=== PATIENT | female | born 1970 | race Caucasian/White ===

== ENCOUNTER 2024-11-22 10:52 | Outpatient (CLI) | payer OTHER, SELFPAY ==
--- NOTE | ~2024-11-22 | XR_ITS ---
CHEST RADIOGRAPH, PA AND LATERAL CLINICAL HISTORY: Asthma w/o status asthmaticus . COMPARISON: None available TECHNIQUE: PA and lateral views of the chest. FINDINGS The cardiomediastinal silhouette is unremarkable. The lungs are clear. IMPRESSION: No focal infiltrate or effusion. Reviewed, dictated and finalized at location A.
== END 2024-11-22 10:53 | disposition home or self-care (01) ==
LOC: MICIMG 10:59
PROVIDERS: PCP Nurse Practitioner; Visit Provider Nurse Practitioner
DX: J45.909 Unspecified asthma, uncomplicated (principal)
CPT/HCPCS: 71046

== ENCOUNTER 2024-12-21 15:25 | Emergency (ER) | payer OTHER, SELFPAY ==
--- OUTSIDE RECORDS SUMMARY | 2024-11-29 05:18 | XMS_ITS | Continuity of Care Document ---
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, [place], [address], [place]. tel:[phone] Family History Family Member Type Diagnosis Age At Onset No Information Payers Payer name Insurance type Covered constitution party ID Authoriza tion(s) No Information Social History Type Description Quantity Date Captured Comments Sex Female Smoking Status No Information Chief Complaint And Reason For Visit No Information Reason For Referral Reason For Referral No Information History Of Present Illness Encounter Date Complaint History Of Prese nt Illness No Information Functional Status Date Functional Assessmen t No Information Instructions Date Instruction Additional Infor mation No Information Assessments Type Assessment Date No Information Patient Care Teams Name Effective Dates (start - stop) Status Members No Information
--- OUTSIDE RECORDS SUMMARY | 2024-11-29 05:18 | XMS_ITS | Continuity of Care Document ---
Author Organization [facility] Address [address] [facility] [address] [place] [address] Phone Care Team Providers Care Equine Intern Name Role Phone Nabor Castellano MD Unavailable Unavailable Advance Directives Directive Yes / No Effective Date File Name No Information Encounters Encounter Description Practice Location Reason(s) For Visit Diagnoses Date Provider Providers Copied on Encounter [facility], [address] [facility] [facility] [address], [place], [place], [id number], [place] tel:[phone] [facility] No Information [address] [facility], [place], [address], [place]. tel:[phone] Family History Family Member Type Diagnosis Age At Onset No Information Payers Payer name Insurance type Covered green party ID Authoriza tion(s) No Information Social [...]
--- NOTE | ~2024-12-21 | XR_ITS ---
EXAMINATION: XR chest 1V portable 12/21/2024 16:14 INDICATION: SOA TECHNIQUE:A single portable AP upright frontal image of the chest was obtained. COMPARISON: 11/22/2024 FINDINGS: Heart is not enlarged. No pneumothorax. No pleural effusion. No free air the diaphragm. Small opacities in the mid and lower lungs. IMPRESSION: 1: Small opacities in the mid and lower lungs which represents atelectasis/scarring or infiltrates. Reviewed, dictated and finalized at location Q. IMPRESSION: 1: Small opacities in the mid and lower lungs which represents atelectasis/sca rring or infiltrates.
[2024-12-21 15:35] VITALS: BP 159/67; PULSE 94; RESP 24; TEMP 36.4; O2SAT 96
--- NOTE | 2024-12-21 15:46 | PC.NURSE ---
Bilateral lungs auscultated in triage. Pt. moving little air. Pt. brought back to a room, ER docs notified and ED respiratory called to bedside.
--- NOTE | 2024-12-21 15:48 | ECG_ITS ---
Test Date: 2024-12-21 15:48:13 Measurements Intervals [place] Rate: 82 P: 8 UT: 170 QRS: 17 QRSD: 74 T: 61 QT: 358 QTc: 419 Interpretive Statements SINUS RHYTHM NONSPECIFIC T-WAVE ABNORMALITY ABNORMAL ECG No previous ECG available for comparison Electronically Signed On 12-22-2024 12:13:16 CDT by Willi Perez M.D.
[2024-12-21] MEDS: ALBUTEROL SULFATE NEB 2.5 MG/3 ML INH 15 MG INHALATION (16:01)
[2024-12-21] MEDS: IPRATROPIUM BR 0.02% INH SOLN 0.5 MG/2.5 ML VIAL 1.5 MG INHALATION (16:01)
[2024-12-21 16:13] VITALS: PULSE 79; RESP 21
[2024-12-21 16:21] VITALS: BP 137/79; PULSE 83; RESP 20; O2SAT 97
[2024-12-21] MEDS: Please add drug allergy info to patient profile. 1 EACH XX (16:43)
[2024-12-21 16:44] VITALS: PULSE 80
--- NOTE | 2024-12-21 17:48 | ED.SOB ---
HPI - SOB/Dyspnea General Chief Complaint: Shortness of Breath/Dyspnea Stated Complaint: SOB Time Seen by Provider: 12/21/24 15:47 History of Present Illness HPI Narrative: Patient is a 54-year-old female who presents ER with shortness of breath. Worsening over last couple days. Associated with productive cough with yellow mucus. No fevers or chills. Seen at urgent care and sent here to get breathing treatments. She was prescribed azithromycin as well as Medrol Dosepak. She has mild congestion. No sore throat. Related Data Allergies Allergy/AdvReac Type Severity Reaction Status Date / Time nirmatrelvir (From Paxlovid) Allergy Unknown Shakiness Verified 12/21/24 16:13 ritonavir (From Paxlovid) Allergy Unknown Shakiness Verified 12/21/24 16:13 Review of Systems Review of Systems: All systems reviewed & are unremarkable except as noted in HPI and below Constitutional: Constitutional: Reports no additional constitutional complaints ENT: Reports system reviewed and no additional complaints, except as documented Cardiovascular: Cardiovascular: Reports no additional cardiovascular complaints Respiratory: Respiratory: Reports no additional respiratory complaints [facility] Past Medical History Medical History (Updated 12/21/24 @ 18:05 by Giovanni Gutierrez MD) Asthma Surgical History Surgical History (Updated 12/21/24 @ 17:49 by Giovanni Gutierrez MD) No pertinent past surgical history Exam Narrative: GENERAL: Well-appearing, well-nourished, and in no acute distress. HEAD: Normocephalic, atraumatic. ENT: Mucous membranes moist. CHEST: Poor air movement with diffuse expiratory wheezing. No respiratory distress. HEART: Regular rate and rhythm. Normal peripheral pulses. EXTREMITIES: Normal range of motion. No edema. SKIN: Warm, dry, no rash. NEURO: Alert and oriented x3. PSYCH: Normal mood and affect. Course Course Emergency Course: Wheezing resolved with hour long nebulizer treatment. Recommend continuing Z-Claudio and Medrol Dosepak. Discussed imaging results. Recommend using inhaler 4-6 puffs every 4-6 hours. Vital Signs Vital signs: Vital Signs Temperature 97.5 F L 12/21/24 15:35 Pulse Rate 94 12/21/24 15:35 Respiratory Rate 24 H 12/21/24 15:35 Blood Pressure 159/67 H 12/21/24 15:35 Pulse Oximetry 96 12/21/24 15:35 Oxygen Delivery Room Air 12/21/24 15:35 Temperature 97.5 F L 12/21/24 15:35 Pulse Rate 80 12/21/24 16:44 Respiratory Rate 20 12/21/24 16:21 Blood Pressure 137/79 12/21/24 16:21 Pulse Oximetry 97 12/21/24 16:21 Oxygen Delivery Room Air 12/21/24 16:15 MDM - SOB/Dyspnea Imaging Data Radiologist's impression: ITS Impressions Chest X-Ray 12/21/24 16:15 IMPRESSION: 1: Small opacities in the mid and lower lungs which represents atelectasis/scarring or infiltrates. Discharge Plan Discharge Clinical Impression: Community acquired pneumonia Patient Disposition: Home Condition: Stable Instructions: Community Acquired Pneumonia (ED) Additional Instructions: Continue the steroids and antibiotics that were previously prescribed. Use your inhaler every 4-6 hours and 4-6 puffs each time. Return to the ER if you have worsening shortness of breath, you have chest pain, or you have additional concerns. Patient Language: Scottish Follow-up/Referrals: Sean,Neeta Norman, WAREHOUSE SHIPPING RECEIVING CLERK-C [Primary Care Provider] - 1 Week
[2024-12-21 18:44] VITALS: PULSE 70; RESP 16; O2SAT 98
== END 2024-12-21 18:40 | disposition home or self-care (01) ==
PROVIDERS: Emergency Provider Emergency Medicine; PCP Nurse Practitioner
DX: J18.9 Pneumonia, unspecified organism (principal)
CPT/HCPCS: 71045; 93005; 94640; 99284